=== PATIENT | female | born 1960 | race Caucasian/White ===

== ENCOUNTER → 2023-05-17 13:22 | Outpatient (REF) | payer OTHER, SELFPAY | LOC: RAD 13:22 | PROVIDERS: ATTENDING PHYSICIAN Family Medicine | DX: Z12.31 Encounter for screening mammogram for malignant neoplasm of breast (principal); Z78.0 Asymptomatic menopausal state | CPT/HCPCS: 77063; 77067; 77080 ==

== ENCOUNTER → 2023-11-07 06:13 | Day surgery (SDC) | payer OTHER, SELFPAY | LOC: GI 06:13 | PROVIDERS: ATTENDING PHYSICIAN Internal Medicine | DX: Z12.11 Encounter for screening for malignant neoplasm of colon (principal); K63.3 Ulcer of intestine; K57.30 Diverticulosis of large intestine without perforation or abscess without bleeding; Z86.010 Personal history of colon polyps | CPT/HCPCS: 45380; 88305 ==

== ENCOUNTER 2024-11-11 09:19 | Emergency (ER) | payer OTHER, SELFPAY ==
[2024-11-11 09:31] VITALS: BP 150/79
--- NOTE | 2024-11-11 11:02 | ED.GENMED ---
History of Present Illness
General
Chief Complaint: Abdominal Symptoms
Source: patient
Exam Limitations: none
Time Seen by Provider: 11/11/24 10:50
History of Present Illness
History of Present Illness:
See MDM
Past History
Past History
ED Past Medical History: Other (Diverticulosis)
ED Past Surgical History: None
Social History
Tobacco: Non-smoker
Alcohol: None
Phy Exam
Physical Exam
Physical Exam:
See MDM
Course
Orders/Labs/Results
Orders:
Orders
11/11/24 11:02
CT Abd/pelvis W Iv Cont Urgent
Comment:
Reason For Exam: LLQ pain
11/11/24 11:20
Type And Crossmatch [Type+Screen] Urgent
Complete Blood Count/With Diff Urgent
Comprehensive Metabolic Panel Urgent
Lipase Urgent
PT/INR [Prothrombin Time] Urgent
PTT Urgent
11/11/24 12:09
ABO2 Urgent
BBK Wristband Number:
Associate notified that ABO2 has been ordered: [id number]
Date: 11/11/24
Time: 11:39
Dispatcher Ship Pilot ID: [id number]
11/11/24 13:29
Amoxicillin 875 mg/Clav 125 mg [Augmentin 875 mg/125 mg] 1 tablet PO NOW STA
Abnormal Lab Results
11/11/24
11:20
WBC 11.5 H 10^3/uL
(4.8-10.8)
RBC 4.13 L 10^6/uL
(4.20-5.40)
Absolute Neuts (auto) 9.4 H 10^3/uL
(1.4-6.5)
Absolute Lymphs (auto) 1.1 L 10^3/uL
(1.2-3.4)
Absolute Monos (auto) 1.0 H 10^3/uL
(0.1-0.6)
Neutrophils % 81.3 H %
(42.2-75.2)
Lymphocytes % 9.7 L %
(20.5-51.1)
Chloride 109 H mmol/L
(98-107)
Glucose 109 H mg/dl
(70-99)
11/11/24 11:20
11/11/24 11:20
Vital Signs
Initial and Last Documented VS:
Initial Vital Signs
Temp Pulse Resp BP Pulse Ox
98.6 F 60 16 150/79 96
11/11/24 09:31 11/11/24 09:31 11/11/24 09:31 11/11/24 09:31 11/11/24 09:31
Last Documented Vital Signs
Temp Pulse Resp BP Pulse Ox
98.6 F 61 13 108/94 98
11/11/24 09:31 11/11/24 13:30 11/11/24 13:30 11/11/24 13:00 11/11/24 12:30
MDM/Problems Addressed
Differential Diagnosis Includes:
Note:
CHIEF COMPLAINT(S)
Abdominal cramping, changes in bowel habits with urgency and loose stools, and rectal bleeding.
HISTORY OF PRESENT ILLNESS
The patient is a 64-year-old female with a history of diverticulosis presenting with abdominal cramping, noted changes in bowel habits, and rectal bleeding. The symptoms have been ongoing for the past month. She reports an increase in cramping and
urgency, especially in the morning, after beginning a new workout regimen and eliminating coffee from her diet. The bowel movements are described as not solid, with only a small amount being passed despite the urgency. The patient denies having had
any prior episodes of diverticulitis. She also reports the presence of clotted blood noted on toilet paper, which she finds alarming, though she denies pure bloody stools.
Additionally, the patient has observed �a different kind of bowel� consistency over the past month. A recent ultrasound has identified a simple cyst on the left kidney, which is not believed to be problematic at this time. Family history includes
the patients mother passing from kidney cancer, prompting consideration of this family history during evaluation. The patient last underwent a colonoscopy in June, which showed no concerning findings other than polyps, which were removed.
To further investigate the current symptoms and to differentiate between uncomplicated and complicated diverticulitis, a computed tomography (CT) scan is planned. If the imaging is inconclusive and the clinical suspicion remains for infection,
treatment for presumed uncomplicated diverticulitis will be initiated.
PAST MEDICAL AND SURGICAL HISTORY
The patient has a known history of diverticulosis.
CHRONIC MEDICAL CONDITIONS SIGNIFICANTLY AFFECTING CARE
The patient is on medication for hypertension.
ALLERGIES
No known drug allergies were mentioned.
MEDICATIONS
The patient is currently on two blood pressure medications.
PHYSICAL EXAM
General: Alert, no acute distress.
Skin: Warm, dry.
Head: Normocephalic, atraumatic
Neck: Appears supple, trachea midline.
Eyes, Ears, Nose, Mouth, and Throat: Oral mucosa moist.
Cardiovascular: No signs of cyanosis
Respiratory: Respirations are non-labored.
Abdomen: Non-distended. No significant abdominal tenderness noted
Musculoskeletal: No deformities
Neurological: No focal neurological deficit observed.
Psychiatric: Cooperative, appropriate mood and affect.
PROBLEM LIST
- Acute: Abdominal cramping, bowel habit changes, rectal bleeding.
- Chronic: Hypertension, diverticulosis.
PLAN
- Perform a CT scan to assess for diverticulitis.
- Conduct blood work to evaluate kidney function in preparation for the CT scan.
- Depending on CT results and blood work findings, consider outpatient management versus admission.
- Discussed symptoms and potential treatment for uncomplicated diverticulitis, including possible antibiotic therapy.
DIFFERENTIAL DIAGNOSIS
The Differential Diagnosis includes, in no particular order and is not limited to:
1. Diverticulitis
2. Colorectal polyps or malignancy
3. Inflammatory bowel disease
4. Infectious colitis
5. Ischemic colitis
6. Hemorrhoids
7. Colonic bleeding from other sources
8. Gastrointestinal tumors
9. Renal cyst complications
10. Gastrointestinal infection
SUMMARY OF ENCOUNTER
The patient was seen in the emergency department with abdominal symptoms prompting a CT scan. The CT results were consistent with diverticulitis versus colitis. Given the patients stable and well-appearing condition, the decision was to manage her
with oral antibiotics and discharge her with strict return precautions for any worsening symptoms such as increased pain, bleeding, or fever.
DISPOSITION
Discharge.
ASSESSMENT
The CT findings suggest either diverticulitis or colitis.
PLAN
The patient will be started on oral antibiotics. She was advised on strict return precautions if symptoms worsen and instructed to follow up with a final inspector movement assembly in the outpatient setting.
INDEPENDENT REVIEW OF LABS AND INTERPRETATION OF TESTS
My independent interpretation of the CT scan is consistent with findings that suggest diverticulitis versus colitis.
PATIENT EDUCATION AND COUNSELING
The patient was educated on symptoms warranting immediate return, including increasing pain, bleeding, or the development of fever.
FOLLOW-UP INSTRUCTIONS
The patient is instructed to follow up with a final inspector movement assembly in the outpatient setting.
MEDICAL DECISION MAKING
1. Number and Complexity of Problems Addressed:
Chronic conditions affecting care: Hypertension, diverticulosis. The Differential Diagnosis includes diverticulitis, colitis, among others.
2. Data:
Category 1
- My independent interpretation of the CT scan indicates findings consistent with diverticulitis versus colitis.
3. Risk:
Consideration of admission/observation was considered given the complexity and risk of the patients presenting complaint and exam findings. However, ultimately I feel the patient is safe for outpatient management with close follow-up. Reasoning: The
work-up is reassuring and does not reveal any acute life/organ threatening processes; the patients symptoms are well controlled upon reevaluation, reexamination is reassuring, vitals are stable, patient agrees with discharge, and is reliable for
follow-up.
DIAGNOSIS
Diverticulitis (ICD-10: K57.32)
Colitis, unspecified (ICD-10: K52.9)
*Pulse Oximetry
SaO2: 96
Oxygen Mode of Delivery: Room air
Patient hypoxic: no
*Critical Care Note
Total Time (30-74mins, 75-104mins- exclusive of procedures): Not Applicable
ED Attending Note
-
Portions of this chart may have been created with voice recognition software.� Occasional wrong word or��sound alike� substitutions may have occurred due to the inherent limitations of voice recognition software.
Discharge Plan
Departure
Patient Disposition: Home (Routine Discharge)
Date of Disposition: 11/11/24
Time of Disposition: 13:37
Patient with high blood pressure during this ER visit?: No
Discharge Problem:
Diverticulitis
Instructions: Diverticulitis - Discharge instructions
Prescriptions:
New
amoxicillin-pot clavulanate 875-125 mg tablet
1 tab PO BID Qty: 14 0RF
Referrals:
Deshawn Vyas MD [Active, Gastroenterology]
Julieth Stafford CRNP [Family Provider, Internal Medicine]
Activity Restrictions/Additional Instructions:
Please return for any worsening symptoms such as worsening pain, worsening bleeding or if you develop fevers.
You may return at any time if you have further concerns.
Please follow up with your doctor at the first available appointment, preferably this week.
Please make an appointment to see the final inspector movement assembly at first available appointment.
Thank you for choosing [facility].
Interventions
Interventions:
*Risk Screen - Suicide Last Done: 11/11/24 11:28
*General Assessment Last Done: 11/11/24 11:28
*Neglect/Abuse Screening Last Done: 11/11/24 11:28
*ED- Fall Risk Assessment Last Done: 11/11/24 11:28
*ED COVID-19 Vaccine History Last Done: 11/11/24 11:28
GO-Utlash-Hzbxerqftc Assessment Last Done: 11/11/24 11:33
ED- Cardiac Assessment Last Done: 11/11/24 11:33
ED- Pulmonary Assessment Last Done: 11/11/24 11:33
Discharge Date and Time
Print Language: DANISH
[2024-11-11 11:28] VITALS: BMI 30.8
[2024-11-11 11:31] VITALS: BP 139/79
[2024-11-11 11:39] LABS: Hematocrit 37.3 % (37.0-47.0); Hemoglobin 12.4 g/dL (12.0-16.0); Mean Corp Hgb Conc. 33.2 g/dL (33.0-37.0); Mean Corpuscular Volume 90.3 fL (81.0-99.0); Nucleated Red Blood Cells % 0 %; Platelet Count 331 10^3/uL (130-400); Red Cell Dist. Width 12.9 % (11.5-14.5)
[2024-11-11 11:52] LABS: ALT (SGPT) 20 U/L (0-35); AST (SGOT) 24 U/L (14-36); Albumin 4.4 g/dl (3.5-5.0); Alkaline Phosphatase 58 U/L (38-126); Blood Urea Nitrogen 15 mg/dl (7-17); Calcium 9.4 mg/dl (8.4-10.2); Carbon Dioxide 24 mmol/L (22-30); Chloride 109 mmol/L (98-107); Estimated Creatinine Clearance 99 ml/min; Glucose 109 mg/dl (70-99); Lipase 71 U/L (23-300); Potassium 4.6 mmol/L (3.5-5.1); Sodium 137 mmol/L (135-145); Total Protein 6.9 g/dl (6.3-8.2); eGFR > 60.00
[2024-11-11 12:00] VITALS: BP 118/73
[2024-11-11 12:01] LABS: INR 0.95; PT 13.2 Sec (11.4-14.6)
[2024-11-11 12:02] LABS: APTT 25.3 Sec (23.4-35.0)
[2024-11-11 13:00] VITALS: BP 108/94
[2024-11-11] MEDS: AUGMENTIN 875 MG/125 MG 1 TABLET PO (13:49)
== END 2024-11-11 14:00 | disposition home or self-care (01) ==
LOC: EMR 09:19
PROVIDERS: EMERGENCY PHYSICIAN Student in an Organized Health Care Education/Training Program; FAMILY PHYSICIAN Nurse Practitioner Adult Health
DX: K57.33 Diverticulitis of large intestine without perforation or abscess with bleeding (principal); K52.9 Noninfective gastroenteritis and colitis, unspecified; I10 Essential (primary) hypertension
CPT/HCPCS: 99284; 74177; 80053; 83690; 85025; 85610; 85730; 86850; 86900; 86901; Q9967

== ENCOUNTER → 2024-12-14 14:56 | Outpatient (REF) | payer OTHER, SELFPAY | LOC: RCS 14:56 | PROVIDERS: ATTENDING PHYSICIAN Internal Medicine Cardiovascular Disease; FAMILY PHYSICIAN Nurse Practitioner Adult Health | DX: I10 Essential (primary) hypertension (principal) | CPT/HCPCS: 93306 ==